=== PATIENT | female | born 2000 | race Caucasian/White ===

== ENCOUNTER 2020-02-23 08:26 | Emergency (ER) | payer OTHER ==
[~2020-02-23] VITALS: Ht 175.3 cm; Wt 88.6 kg
[2020-02-23 08:32] VITALS: TEMP 98
[2020-02-23 09:46] LABS: BASO % 0.5 % (0.0-2.0); EOS % 0.5 % (0-4.0); GRAN # 4.9 (1.4-6.5); GRAN % 61.7 % (42.2-75.2); HEMATOCRIT 39.1 % (37.0-47.0); HEMOGLOBIN 12.9 g/dl (12.5-16.0); LYMPH # 2.2 (1.2-3.4); LYMPH % 28.1 % (20.0-51.0); MEAN CELL VOLUME 88 fl (80.0-100.0); MEAN CORPUSCULAR HEMOGLOBIN 29 pg (27.0-31.0); MEAN CORPUSCULAR HGB CONC 33 g/dl (33.0-37.0); MONO # 0.7 (0.1-0.6); MONO % 8.9 % (1.7-9.3); PLATELET COUNT 283 K/mm3 (130-400); RED BLOOD COUNT 4.44 M/mm3 (4.10-5.30); REDCELL DISTRIBUTION WIDTH-CV 12.1 % (11.5-14.5)
[2020-02-23] MEDS ORDERED: CONCERTA27 MG PO (09:50)
[2020-02-23] MEDS ORDERED: APRESOLINE 10MG10 MG PO (09:51)
[2020-02-23] MEDS ORDERED: ABILIFY5 MG PO (09:51)
[2020-02-23] MEDS ORDERED: FLEXERIL 1010 MG/TAB PO (10:17)
[2020-02-23 10:26] VITALS: BP 113/71; PULSE 78
== END 2020-02-23 10:30 | disposition home or self-care (01) ==
LOC: COL.ER 08:26
PROVIDERS: Physician Assistant
DX: R07.89 Other chest pain (principal); F41.9 Anxiety disorder, unspecified; F90.9 Attention-deficit hyperactivity disorder, unspecified type; F31.9 Bipolar disorder, unspecified
CPT/HCPCS: J1885; J2060; J2405; J7030

== ENCOUNTER 2020-05-28 10:37 | Emergency (ER) | payer OTHER ==
[~2020-05-28] VITALS: Ht 175.3 cm; Wt 88.6 kg
[~2020-05-28 10:37] MED LIST: ABILIFY5 MG PO; APRESOLINE 10MG10 MG PO; CONCERTA27 MG PO; FLEXERIL 1010 MG/TAB PO
[2020-05-28 10:44] VITALS: TEMP 98
[2020-05-28] MEDS ORDERED: PROTONIX20 MG PO (10:48)
[2020-05-28 11:09] LABS: COLLECTION METHOD CLEAN CATCH
[2020-05-28 11:26] LABS: TRICYCLIC ANTIDEPRESS URINE NEGATIVE
[2020-05-28 11:32] LABS: MUCOUS Present /lpf; PH 7 (5-8); URINE APPEARANCE Hazy; URINE BACTERIA Rare /hpf; URINE BILIRUBIN Negative (NEGATIVE); URINE BLOOD Negative (NEGATIVE); URINE COLOR Yellow; URINE GLUCOSE Negative (NEGATIVE); URINE KETONE Negative (NEGATIVE); URINE LEUKOCYTE ESTERASE Trace (NEGATIVE); URINE NITRATE Negative (NEGATIVE); URINE PROTEIN(semi-quant) 1+ (NEGATIVE)
[2020-05-28 11:41] LABS: BASO # 0.1 (0.0-0.2); BASO % 0.6 % (0.0-2.0); EOS # 0.1 (0.0-0.7); EOS % 0.7 % (0-4.0); GRAN # 5.4 (1.4-6.5); GRAN % 59.7 % (42.2-75.2); HEMATOCRIT 41.2 % (37.0-47.0); LYMPH # 2.8 (1.2-3.4); LYMPH % 30.8 % (20.0-51.0); MEAN CELL VOLUME 92 fl (80.0-100.0); MEAN CORPUSCULAR HEMOGLOBIN 29 pg (27.0-31.0); MEAN CORPUSCULAR HGB CONC 32 g/dl (33.0-37.0); MEAN PLATELET VOLUME 9.9 fl (7.4-10.4); MONO # 0.7 (0.1-0.6); PLATELET COUNT 287 K/mm3 (130-400); REDCELL DISTRIBUTION WIDTH-CV 12.6 % (11.5-14.5)
[2020-05-28 11:53] LABS: ALCOHOL(ethanol),MEDICAL < 10 mg/dL
[2020-05-28 12:28] LABS: ALBUMIN 4.9 gm/dL (3.5-5.0); BILIRUBIN,TOTAL 0.3 mg/dL (0.0-1.0); BLOOD UREA NITROGEN 13 mg/dL (7-17); CALCIUM 9.4 mg/dL (8.4-10.2); CARBON DIOXIDE 25 mmol/L (22-30); CHLORIDE 104 mmol/L (98-107); CREATININE, serum 0.5 (0.52-1.25); GLUCOSE 88 mg/dL (74-106); POTASSIUM 3.6 mmol/L (3.4-5.0); SODIUM 142 mmol/L (137-145); TOTAL PROTEIN 8.7 gm/dL (6.4-8.2)
[2020-05-28 12:29] LABS: ACETAMINOPHEN < 10 ug/mL (10-30); ALANINE AMINOTRANSFERASE 19 U/L (4-34); ALKALINE PHOSPHATASE 94 U/L (50-136); AST,SGOT 22 U/L (15-37); SALICYLATE < 1.0 mg/dL
[2020-05-28 12:30] LABS: ANION GAP 13 mmol/L (7-16)
[2020-05-28] MEDS ORDERED: MACROBID 1100 MG/CAP PO (13:34)
[2020-05-28 13:44] VITALS: BP 119/78; PULSE 80
== END 2020-05-28 13:41 | disposition home or self-care (01) ==
LOC: COL.ER 10:37
PROVIDERS: Nurse Practitioner Primary Care
DX: F32.9 Major depressive disorder, single episode, unspecified (principal); N39.0 Urinary tract infection, site not specified; F90.9 Attention-deficit hyperactivity disorder, unspecified type; F41.9 Anxiety disorder, unspecified; Z32.02 Encounter for pregnancy test, result negative

== ENCOUNTER 2022-02-07 23:22 | Emergency (ER) | payer OTHER ==
[~2022-02-07] VITALS: Ht 175.3 cm; Wt 104.5 kg
[~2022-02-07 23:22] MED LIST changes: +MACROBID 1100 MG/CAP PO; +PROTONIX20 MG PO
[2022-02-07 23:27] VITALS: TEMP 98.7
[2022-02-07 23:44] LABS: BASO % 0.6 % (0.0-2.0); EOS # 0.1 K/mm3 (0.0-0.7); EOS % 0.8 % (0.0-4.0); GRAN # 4.7 K/mm3 (1.4-6.5); GRAN % 64.9 % (42.2-75.2); HEMATOCRIT 41.5 % (37.0-47.0); HEMOGLOBIN 13.6 g/dl (12.5-16.0); LYMPH # 1.9 K/mm3 (1.2-3.4); LYMPH % 26.4 % (20.0-51.0); MEAN CELL VOLUME 88 fl (80.0-100.0); MEAN CORPUSCULAR HEMOGLOBIN 29 pg (27-31); MEAN CORPUSCULAR HGB CONC 33 g/dl (33.0-37.0); MEAN PLATELET VOLUME 9.5 fl (7.4-10.4); MONO # 0.5 K/mm3 (0.1-0.6); PLATELET COUNT 316 K/mm3 (130-400); RED BLOOD COUNT 4.74 M/mm3 (4.10-5.30); REDCELL DISTRIBUTION WIDTH-CV 11.9 % (11.5-14.5)
[2022-02-08 00:02] LABS: ALANINE AMINOTRANSFERASE 20 U/L (0-55); ALBUMIN 3.9 gm/dL (3.5-5.0); ALKALINE PHOSPHATASE 79 U/L (40-150); ANION GAP 10 mmol/L (7-16); AST,SGOT 19 U/L (5-34); BILIRUBIN,TOTAL 0.2 mg/dL (0.2-1.2); BLOOD UREA NITROGEN 11 mg/dL (7-19); CALCIUM 9.2 mg/dL (8.4-10.2); CARBON DIOXIDE 20 mmol/L (22-29); CHLORIDE 109 mmol/L (98-107); CREATININE, serum 0.69 mg/dL (0.57-1.11); GLUCOSE 107 mg/dL (70-99); SODIUM 139 mmol/L (136-145)
[2022-02-08 00:09] LABS: TROPONIN-I < 0.010 ng/mL (0.00-0.033)
[2022-02-08] MEDS ORDERED: PRILOSEC 20MG20 MG PO (00:15)
[2022-02-08 00:31] VITALS: BP 124/85; PULSE 84
== END 2022-02-08 00:32 | disposition home or self-care (01) ==
LOC: COL.ER 23:22
PROVIDERS: Emergency Medicine
DX: R07.2 Precordial pain (principal); M25.512 Pain in left shoulder; Z20.822 Contact with and (suspected) exposure to COVID-19